=== PATIENT | female | born 1935 | race Two or more races ===

== ENCOUNTER 2017-01-19 10:31 | Inpatient (IN) | payer OTHER ==
[~2017-01-19] VITALS: Ht 167.6 cm; Wt 68.5 kg
--- NOTE | 2017-01-19 10:41 | NUR ---
BIBRA FROM HOME DUE TO ALTERED MENTAL STATUS. PATIENT IS AWAKE, HOWEVER CONFUSED. APPEARS IN NO APPARENT DISTRESS, RESPIRATION EVEN AND UNLABORED. SKIN IS WARM TO TOUCH AND NON DIAPHORETIC. PATIENT IS AFEBRILE. VSS. GOWNED PT AND PLACED ON TELE MONITOR, IV NOTED ON LHAND20.
[2017-01-19] MEDS ORDERED: IV NS 0.9% 1,000 ML ONE ×2 (10:56→13:01)
[2017-01-19] MEDS ORDERED: IV NS 0.9% 1,000 ML BAG IV ONE ×2 (11:00→13:00)
--- NOTE | 2017-01-19 11:16 | NUR ---
MORRO COLLINS AT BS
--- NOTE | 2017-01-19 11:16 | NUR ---
URINE SAMPLE SENT
--- NOTE | 2017-01-19 11:28 | NUR ---
CALLED NURSING SUP. FOR BED, SAID SHE WILL CALL ME BACK
[2017-01-19 11:29] LABS: APPEARANCE,URINE Cloudy (CLEAR); BILIRUBIN,URINE Negative (NEGATIVE); BLOOD, URINE Moderate Ery/uL (NEGATIVE); COLOR,URINE Yellow (YELLOW); KETONES,URINE Trace (NEGATIVE); LEUKOCYTE ESTERASE ,URINE Negative (NEGATIVE); NITRITE, URINE Negative (NEGATIVE); PH,URINE 8.5 (5.0-8.0); PROTEIN,URINE 30 mg/dl (NEGATIVE); UGLUCOSE Negative (NEGATIVE); UROBILINOGEN,URINE 0.2 EU/dL (0.2)
[2017-01-19 11:30] LABS: BASOPHILS # (AUTO) 0.2 /CMM (0.0-0.2); BASOPHILS % (AUTO) 1.3 % (0.0-2.0); EOSINOPHILS % (AUTO) 0.1 % (0.0-6.0); HEMATOCRIT 37 % (33-45); HEMOGLOBIN 12.3 g/dL (11.5-14.8); LYMPHOCYTES % (AUTO) 6.6 % (20.0-44.0); MEAN CORPUSCULAR HEMOGLOBIN 30 PG (26.0-33.0); MEAN CORPUSCULAR HGB CONC 33 g/dl (31.0-36.0); MEAN CORPUSCULAR VOLUME 92 fL (82-100); MONOCYTES # (AUTO) 0.8 /CMM (0.1-1.30); MONOCYTES % (AUTO) 5.1 % (2.0-12.0); NEUTROPHILS # (AUTO) 13.7 /CMM (1.8-8.9); NEUTROPHILS % (AUTO) 86.9 % (43.0-81.0); PLATELET COUNT (AUTO) 169 /CMM (150-450); RDW COEFFICIENT OF VARIATION 13.1 (11.5-15.0); RED BLOOD CELL COUNT(AUTO) 4.07 MIL/uL (4.0-5.2); WHITE BLOOD COUNT (AUTO) 15.7 K/uL (4.3-11.0)
[2017-01-19 11:38] LABS: CALCIUM, SERUM 8.2 mg/dL (8.5-10.1); CARBON DIOXIDE 28 mmol/L (21-32); CHLORIDE 103 mmol/L (98-107); GLUCOSE 146 mg/dL (74-106); POTASSIUM 4.1 mmol/L (3.5-5.1); SODIUM SERUM 138 mmol/L (136-145); UREA NITROGEN, BLOOD 15 mg/dL (7-18)
[2017-01-19 11:41] LABS: INR 1.08 (0.87-1.13); PROTHROMBIN TIME 11.2 SECS (9.5-12.7)
[2017-01-19 11:43] LABS: ALANINE AMINOTRANSFERASE 8 U/L (12-78); ALBUMIN 2.8 g/dL (3.4-5.0); ALCOHOL, BLOOD < 3 mg/dL (0-0); ALKALINE PHOSPHATASE 68 U/L (46-116); ASPARTATE AMINOTRANSFERASE 21 U/L (15-37); BILIRUBIN,DIRECT 0.1 mg/dL (0.0-0.2); TOTAL PROTEIN, SERUM 6.3 g/dL (6.4-8.2)
[2017-01-19 11:43] LABS: BACTERIA,URINE None seen /HPF (None Seen); SQUAMOUS EPITHELIAL CELL,UR Few /HPF (None Seen); URINE AMORPHOUS PHOSPHATES Moderate /HPF (None Seen); WBC,URINE 0-3 /HPF (0-3)
[2017-01-19 11:46] LABS: TROPONIN I < 0.017 ng/mL (0.00-0.056)
[2017-01-19] MEDS ORDERED: LUTE1CAP5 PO (12:07)
[2017-01-19] MEDS ORDERED: GLUC1TAB9 PO (12:07)
[2017-01-19] MEDS ORDERED: OXYB10TA PO (12:07)
[2017-01-19] MEDS ORDERED: OMEG-158 PO (12:07)
[2017-01-19] MEDS ORDERED: CALC-34 PO (12:07)
[2017-01-19] MEDS ORDERED: SERT25TA PO (12:07)
[2017-01-19] MEDS ORDERED: ASPI81TA2 PO (12:07)
[2017-01-19] MEDS ORDERED: VITA1TAB56 PO (12:07)
[2017-01-19] MEDS ORDERED: ASCO500T9 PO (12:07)
[2017-01-19] MEDS ORDERED: ACET-2605 PO (12:07)
[2017-01-19] MEDS ORDERED: UBID100C13 PO (12:07)
[2017-01-19] MEDS ORDERED: CARV3.122 PO (12:07)
[2017-01-19] MEDS ORDERED: CHOL100044 PO (12:07)
--- NOTE | 2017-01-19 12:18 | NUR ---
PT IS BACK FROM [place]
--- NOTE | 2017-01-19 12:47 | NUR ---
DR.RUTHERFORD MEHDI HOUSEKEEPER/CUSTODIAN/LAUNDRY WORKER
[2017-01-19] MEDS ORDERED: CEFTRIAXONE 1GM BAG (ER ONLY) 1 GM/50 ML PIGGYBACK IV ONE (13:00)
[2017-01-19] MEDS ORDERED: CEFTRIAXONE 1GM BAG (ER ONLY) 50 ML IV ONE (13:01)
--- NOTE | 2017-01-19 13:15 | NUR ---
PT TRANSPORTED TO 3W WITH VSS Addendum: 01/19/17 at 1315 by ROBERTO PT TRASNPORTED TO TELE 1 WITH VSS
[2017-01-19] MEDS ORDERED: SECONDARY IV SET 1 EA INFUS.SET MC ONE ×2 (13:22→20:32)
[2017-01-19] MEDS ORDERED: IV SET PRIMARY PUMP SET 1 EA INFUS.SET MC ONE (13:22)
[2017-01-19 13:30] VITALS: BP 126/54
[2017-01-19] MEDS ORDERED: Z GUARD REMEDY 2 OZ OINT TP PRN (13:30)
[2017-01-19] MEDS ORDERED: ONDANSETRON HCL/PF 4 MG/2 ML VIAL IVP PRN (13:30)
[2017-01-19] MEDS ORDERED: ACETAMINOPHEN 325 MG TABLET PO PRN (13:30)
[2017-01-19] MEDS ORDERED: HYDROCODONE/APAP 5/325MG 1 EACH TABLET PO PRN (13:30)
[2017-01-19] MEDS ORDERED: ZOLPIDEM TARTRATE 5 MG TABLET PO PRN (13:30)
[2017-01-19] MEDS ORDERED: MAG HYDROX/AL HYDROX/SIMETH 30 ML UDC PO PRN (13:30)
--- NOTE | 2017-01-19 13:30 | NUR ---
ADMITTING NOTE RECEIVED PATIENT VIA GURNEY FROM ER NURSE MIKEL. BREATHING EVEN AND UNLABORED ON ROOM AIR 95% SAT. A+OX1 AT BASELINE. OPENS EYES, FOLLOWS STIMULUS, DOES NOT FOLLOW COMMAND, MUMBLES SOUNDS, NON-VERBAL. FAMILY AT BED SIDE SAYING SHE IS NOT IN PAIN THEY ARE FAMILIAR WITH PATIENT. L HAND IV AND RAC IV ARE PATENT, NO COMPLICATIONS. RECEIVING IV FLUIDS AT THIS TIME S/P 1 DOSE ATBX. TELE WRIST BAND ON, MONITOR ON. DAUGHTER RUSSELL IS DPOA, STATING PREFERRING DNR. NEEDS ASSESSED, COMFORT MEASURES PROVIDED. WILL CONTINUE TO MONITOR.
[2017-01-19 16:00] VITALS: BP 111/61
--- NOTE | 2017-01-19 16:17 | NUR ---
ADDITIONAL ADMISSION INFORMATION- PATIENT CAME WITH ONLY 1 BRACELET, NO OTHER BELONGINGS SKIN ENTIRELY INTACT WITH ONLY FAINT BRUISING ON BL CHINS AND BLANCHABLE SACRAL REDNESS ADVANCE DIRECTIVE AND ORGAN DONOR PAPER WORK PLACED IN CHART UNDER ADVANCE DIRECTIVES. PER DAUGHTER, PATIENT'S WISHES ARE DNR AND DNI AND IN CASE OF PATIENT WISHES TO HAVE ORGAN DONATION TO [facility].
[2017-01-19] MEDS: CALCIUM CARB 600MG /VIT D 1 EACH TABLET PO SCH (16:48)
[2017-01-19] MEDS: CHOLECALCIFEROL 1,000 UNIT TABLET (VIT D3) PO SCH (16:48)
[2017-01-19] MEDS: CARVEDILOL 3.125 MG TABLET PO SCH (16:49)
--- NOTE | 2017-01-19 18:54 | NUR ---
RN NOTE PATIENT WAS SEEN BY DR. RODRIGUEZ WITH NEW ORDER FOR GARCIA CATHETER INSERTION R/T RETENTION REPORT BY PATIENT'S DAUGHTER. F/C WAS INSERTED AND PATIENT TOLERATED PROCEDURE, URINE RETURN YELLOW AND CLEAR- USED STERILE TECHNIQUE. PER DAUGHTER REQUEST, SOFT WRIST RESTRAINT ON R ARM TO PREVENT PULLING OF LINES (PT HAS HX OF PULLING). 1 NEW ORDER FOR R ARM SOFT RESTRAINT AND SCD ON LE RECEIVED.
--- NOTE | 2017-01-19 19:06 | NUR ---
PER REGINE CANO TO HOLD HOME MEDS COENZYME Q10, FISH OIL AND GLUCOSAMINE DURING THIS HOSPITAL STAY. PHARMACY UNABLE TO SUPPLY
--- NOTE | 2017-01-19 19:37 | NUR ---
End of shift breathing and loc stable. all needs met. call light in reach.
[2017-01-19 20:00] VITALS: BP 88/39
[2017-01-19] MEDS ORDERED: VANCOMYCIN 1 GM in IV D5W 250 ML IV ONE (20:00)
[2017-01-19] MEDS ORDERED: LEVOFLOXACIN 500 MG /D5W 100ML 500 MG in PREMIX 1 EA IV ONE (20:00)
[2017-01-19] MEDS ORDERED: VANCOMYCIN 0.75 GM in IV D5W 250 ML IV SCH (20:00)
--- NOTE | 2017-01-19 20:00 | NUR ---
VANCO 1GM GIVEN ON RAC AND LEVAQUIN LH BOTH DUE AT SAME TIME NO S/E NOTED AFEBRILE, NO DISTRESS.
--- NOTE | 2017-01-19 20:02 | NUR ---
TEL RN NOTES RECEIVED PT ASLEEP IN BED HOB ELEVATED, A/OX1, ON RA NO SIGN OF SOB,OR FACIAL GRIMACING NOTED CLEAN AND DRY, WILL CONT TO MONITOR PT.
[2017-01-19] MEDS: ENOXAPARIN SODIUM 40 MG/0.4 ML DISP.SYRIN SQ SCH (20:48)
--- NOTE | 2017-01-19 21:03 | NUR ---
PA DAUGHTER WANTS THE COREG TO BE HELD, BECAUSE PT BP ALWALYS RANGES LOW SO PLEASE AWARE.
--- NOTE | 2017-01-19 21:11 | NUR ---
DAUGHTER AKHIL WANTS TO HOLD DITROPAN DUE TO PT WITH F/C AT THIS TIME
[2017-01-19] MEDS: OXYBUTYNIN CHLORIDE 5 MG TABLET PO SCH (21:37)
[2017-01-20] VITALS: BP 108/51
[2017-01-20 04:00] VITALS: BP 97/45
[2017-01-20] MEDS: PANTOPRAZOLE 40 MG TABLET.DR PO SCH ×2 (06:41→08:58)
[2017-01-20 07:03] LABS: BASOPHILS % (AUTO) 0.1 % (0.0-2.0); EOSINOPHILS # (AUTO) 0.1 /CMM (0.0-0.7); EOSINOPHILS % (AUTO) 0.3 % (0.0-6.0); HEMATOCRIT 32 % (33-45); HEMOGLOBIN 10.8 g/dL (11.5-14.8); LYMPHOCYTES # (AUTO) 1.6 /CMM (0.8-4.8); LYMPHOCYTES % (AUTO) 10.2 % (20.0-44.0); MEAN CORPUSCULAR HEMOGLOBIN 31 PG (26.0-33.0); MEAN CORPUSCULAR HGB CONC 34 g/dl (31.0-36.0); MEAN CORPUSCULAR VOLUME 92 fL (82-100); MONOCYTES # (AUTO) 0.8 /CMM (0.1-1.30); NEUTROPHILS % (AUTO) 84.4 % (43.0-81.0); PLATELET COUNT (AUTO) 143 /CMM (150-450); RDW COEFFICIENT OF VARIATION 13.5 (11.5-15.0); RED BLOOD CELL COUNT(AUTO) 3.46 MIL/uL (4.0-5.2); WHITE BLOOD COUNT (AUTO) 15.5 K/uL (4.3-11.0)
[2017-01-20] MEDS: IV NS 0.9% 1,000 ML IV PRN (07:09)
--- NOTE | 2017-01-20 07:11 | NUR ---
CLOSING NOTES PT AWAKE WITH SR NO DISTRESS, NO C/O OF PAIN AM CARE PROVIDED WELL REPOSITIONED ENDORSED FOR AM NURSE TO CHECK BEFORE ADMIN OF COREG PER DAUGHTER REQUEST.
[2017-01-20 07:20] LABS: CALCIUM, SERUM 7.6 mg/dL (8.5-10.1); CARBON DIOXIDE 26 mmol/L (21-32); CHLORIDE 109 mmol/L (98-107); CREATININE 0.8 mg/dL (0.6-1.3); GLUCOSE 98 mg/dL (74-106); MAGNESIUM 2.1 mg/dL (1.8-2.4); PHOSPHORUS 1.6 mg/dL (2.5-4.9); POTASSIUM 3.8 mmol/L (3.5-5.1); SODIUM SERUM 142 mmol/L (136-145); UREA NITROGEN, BLOOD 12 mg/dL (7-18)
--- NOTE | 2017-01-20 07:30 | NUR ---
TEL RN NOTES RECEIVED PT ASLEEP IN BED HOB ELEVATED, A/OX1, ON RA NO SIGN OF SOB,OR FACIAL GRIMACING NOTED CLEAN AND DRY,SAFETY MEASURES IN PLACE.I.V SITE CDI AND PATENT.. WILL CONT TO MONITOR PT.FOR CHANGES
[2017-01-20 07:39] LABS: CHOLESTEROL 150 mg/dL (<200); HDL CHOLESTEROL 51 mg/dL (40-60); LDL 76 mg/dL (0-99); TRIGLYCERIDES 79 mg/dL (30-150)
[2017-01-20 08:00] VITALS: BP 99/58
[2017-01-20] MEDS: MULTIVITAMINS W-MINERALS 1 TAB TABLET PO SCH (08:55)
[2017-01-20] MEDS: ASCORBIC ACID 500 MG TABLET PO SCH (08:55)
[2017-01-20] MEDS: SERTRALINE HCL 25 MG TABLET PO SCH (08:55)
[2017-01-20] MEDS: VIT B CMPLX 3/FA/VIT C/BIOTIN 1 TAB TABLET PO SCH (08:55)
[2017-01-20] MEDS: ASPIRIN 81 MG TAB.CHEW PO SCH (08:56)
[2017-01-20] MEDS: CHOLECALCIFEROL 1,000 UNIT TABLET (VIT D3) PO SCH ×3 (08:56→17:16)
[2017-01-20] MEDS: CALCIUM CARB 600MG /VIT D 1 EACH TABLET PO SCH ×2 (08:56→17:16)
[2017-01-20] MEDS: CARVEDILOL 3.125 MG TABLET PO SCH ×2 (08:58→17:17)
[2017-01-20] MEDS ORDERED: DHA PO SCH (09:00)
[2017-01-20] MEDS ORDERED: OMEGA PO SCH (09:00)
[2017-01-20] MEDS ORDERED: FISH OIL E PO SCH (09:00)
[2017-01-20] MEDS ORDERED: Medication Not On Formulary EA (Ubidecarenone (Coq-10) 300 MG) PO SCH (09:00)
[2017-01-20] MEDS ORDERED: [UNRECOGNIZED DRUG - OTHER] PO SCH (09:00)
[2017-01-20] MEDS ORDERED: [UNRECOGNIZED DRUG - OTHER] PO SCH (09:00)
[2017-01-20] MEDS ORDERED: EPA PO SCH (09:00)
[2017-01-20] MEDS ORDERED: GLUCOSAMINE HCL PO SCH (09:00)
[2017-01-20] MEDS ORDERED: MSM PO SCH (09:00)
[2017-01-20 12:00] VITALS: BP_SYST 90; BP_SYST 99; BP_DIAS 55
[2017-01-20] MEDS ORDERED: SECONDARY IV SET 1 EA INFUS.SET MC ONE (12:46)
[2017-01-20] MEDS: CEFTRIAXONE 1 G in IV D5W 50 ML IV SCH (12:51)
[2017-01-20] MEDS ORDERED: K PHOS NEUTRAL 250 MG TABLET PO ONE (14:00)
[2017-01-20 16:00] VITALS: BP 101/53
[2017-01-20 20:00] VITALS: BP 119/36
[2017-01-20] MEDS: LEVOFLOXACIN 250 MG /D5W 50 ML 250 MG in PREMIX 1 EA IV SCH (20:41)
[2017-01-20] MEDS: ENOXAPARIN SODIUM 40 MG/0.4 ML DISP.SYRIN SQ SCH (21:04)
--- NOTE | 2017-01-20 21:06 | NUR ---
RECEIVED PT AWAKE ON RA NO SOB OR C/O OF PAIN PULLED IV LINE OUT NEW LINE PLACED ON RW 22 G, NO COMPLICATION DAUGHTER NISHI REQUEST TO CONT TO HOLD DITROPAN D/T PT CONT ON F/C.
[2017-01-20] MEDS: OXYBUTYNIN CHLORIDE 5 MG TABLET PO SCH (22:00)
[2017-01-21] VITALS: BP 134/88
[2017-01-21] MEDS: IV NS 0.9% 1,000 ML IV PRN ×2 (03:05→19:29)
[2017-01-21 04:00] VITALS: BP 107/56
--- NOTE | 2017-01-21 06:49 | NUR ---
TELE CLOSING NOTES PT AWAKE WITH SR HR 66 WITH PVC, ON RM AIR ,NO SOB OR C/O OF PAIN, ALL NEEDS ATTENDED WELL REPOSITIONED, DAUGHTER STILL REFUSED TO GIVE DITROPAN D/T PT CONT ON F/C.
[2017-01-21 07:30] LABS: CALCIUM, SERUM 7.6 mg/dL (8.5-10.1); CARBON DIOXIDE 24 mmol/L (21-32); CHLORIDE 108 mmol/L (98-107); CREATININE 0.7 mg/dL (0.6-1.3); GLUCOSE 98 mg/dL (74-106); PHOSPHORUS 1.9 mg/dL (2.5-4.9); POTASSIUM 3.3 mmol/L (3.5-5.1); SODIUM SERUM 141 mmol/L (136-145); UREA NITROGEN, BLOOD 11 mg/dL (7-18)
[2017-01-21 08:00] VITALS: BP 112/53
[2017-01-21] MEDS: ASPIRIN 81 MG TAB.CHEW PO SCH (08:20)
[2017-01-21] MEDS: CARVEDILOL 3.125 MG TABLET PO SCH ×2 (08:20→16:06)
[2017-01-21] MEDS: CALCIUM CARB 600MG /VIT D 1 EACH TABLET PO SCH ×2 (08:20→16:05)
[2017-01-21] MEDS: CHOLECALCIFEROL 1,000 UNIT TABLET (VIT D3) PO SCH ×3 (08:20→16:05)
[2017-01-21] MEDS: SERTRALINE HCL 25 MG TABLET PO SCH (08:20)
[2017-01-21] MEDS: MULTIVITAMINS W-MINERALS 1 TAB TABLET PO SCH (08:20)
[2017-01-21] MEDS: ASCORBIC ACID 500 MG TABLET PO SCH (08:20)
[2017-01-21] MEDS: VIT B CMPLX 3/FA/VIT C/BIOTIN 1 TAB TABLET PO SCH (08:20)
[2017-01-21] MEDS ORDERED: POTASSIUM CHLORIDE 20 MEQ TAB.PRT.SR PO ONE (11:00)
[2017-01-21 12:00] VITALS: BP 104/48
[2017-01-21] MEDS: CEFTRIAXONE 1 G in IV D5W 50 ML IV SCH (12:57)
[2017-01-21] MEDS ORDERED: K PHOS NEUTRAL 250 MG TABLET PO ONE (15:30)
[2017-01-21 16:00] VITALS: BP 109/56
[2017-01-21] MEDS: LACTOBACILLUS RHAMNOSUS GG 1 EACH CAP.SPRINK PO SCH (16:05)
--- NOTE | 2017-01-21 19:54 | NUR ---
RECEIVED PT AWAKE IN BED WITH SR 65-76, CONT ON RM AIR, WELL TOLERATED, HOB ELEVATED, CLEAN AND DRY, SEEN BY MD WARD WITH ORDER TO D/C F/C IN AM, DAUGHTER AT BED SIDE MADE AWARE, ALL NEEDS ATTENDED AT THIS TIME.
--- NOTE | 2017-01-21 19:57 | NUR ---
END OF SHIFT NO NOTABLE CHANGE OF CONDITION OR COMPLICATIONS THIS SHIFT.
[2017-01-21 20:00] VITALS: BP 112/52
[2017-01-21] MEDS: LEVOFLOXACIN 250 MG /D5W 50 ML 250 MG in PREMIX 1 EA IV SCH (20:37)
[2017-01-21] MEDS: ENOXAPARIN SODIUM 40 MG/0.4 ML DISP.SYRIN SQ SCH (20:40)
[2017-01-21] MEDS: OXYBUTYNIN CHLORIDE 5 MG TABLET PO SCH (22:00)
--- NOTE | 2017-01-21 22:30 | NUR ---
DITROPAN NOT GIVEN PER DAUGHTERS REQUEST
[2017-01-21] MEDS: MAGNESIUM HYDROXIDE 30 ML UDC PO PRN (22:34)
[2017-01-22 04:00] VITALS: BP 112/71
--- NOTE | 2017-01-22 06:18 | NUR ---
MS RN CLOSING NOTES PT AWAKE IN BED AM CARE PROVIDED, ON RM AIR CLEAN AND DRY WELL REPOSITIONED, NO SIGN OF SOB, F/C D/C ORDERED, WILL MONITOR PT FOR RETENTION.
[2017-01-22] MEDS: PANTOPRAZOLE 40 MG TABLET.DR PO SCH ×2 (06:42→08:57)
--- NOTE | 2017-01-22 07:20 | NUR ---
RN NOTES PATIENT RECEIVED IN BED, ORIENTED TO SELF ONLY, ABLE TO MAKE NEEDS KNOWN.PT ON BILATERAL SOFT WRIST RESTRAINTS, NURSING EDUCATION REINFORCED. IN NO APPARENT PAIN OR DISCOMFORT, KEPT CLEAN DRY AND COMFORTABLE, CALL LIGHT WITHIN EASY REACH, WILL CONTINUE TO MONITOR
[2017-01-22 07:35] LABS: CALCIUM, SERUM 7.8 mg/dL (8.5-10.1); CARBON DIOXIDE 23 mmol/L (21-32); CHLORIDE 106 mmol/L (98-107); CREATININE 0.6 mg/dL (0.6-1.3); GLUCOSE 97 mg/dL (74-106); MAGNESIUM 2.1 mg/dL (1.8-2.4); PHOSPHORUS 2.4 mg/dL (2.5-4.9); POTASSIUM 3.8 mmol/L (3.5-5.1); SODIUM SERUM 139 mmol/L (136-145); UREA NITROGEN, BLOOD 10 mg/dL (7-18)
[2017-01-22 08:00] VITALS: BP 121/67
[2017-01-22 08:13] LABS: BASOPHILS % (AUTO) 0.3 % (0.0-2.0); EOSINOPHILS # (AUTO) 0.2 /CMM (0.0-0.7); EOSINOPHILS % (AUTO) 1.6 % (0.0-6.0); HEMATOCRIT 34 % (33-45); HEMOGLOBIN 11.5 g/dL (11.5-14.8); LYMPHOCYTES % (AUTO) 21.4 % (20.0-44.0); MEAN CORPUSCULAR HEMOGLOBIN 31 PG (26.0-33.0); MEAN CORPUSCULAR HGB CONC 34 g/dl (31.0-36.0); MEAN CORPUSCULAR VOLUME 91 fL (82-100); MONOCYTES # (AUTO) 0.8 /CMM (0.1-1.30); MONOCYTES % (AUTO) 8.3 % (2.0-12.0); NEUTROPHILS # (AUTO) 6.4 /CMM (1.8-8.9); NEUTROPHILS % (AUTO) 68.4 % (43.0-81.0); PLATELET COUNT (AUTO) 167 /CMM (150-450); RDW COEFFICIENT OF VARIATION 12.3 (11.5-15.0); RED BLOOD CELL COUNT(AUTO) 3.67 MIL/uL (4.0-5.2); WHITE BLOOD COUNT (AUTO) 9.4 K/uL (4.3-11.0)
[2017-01-22] MEDS: MULTIVITAMINS W-MINERALS 1 TAB TABLET PO SCH (08:56)
[2017-01-22] MEDS: ASCORBIC ACID 500 MG TABLET PO SCH (08:56)
[2017-01-22] MEDS: CARVEDILOL 3.125 MG TABLET PO SCH ×2 (08:57→16:51)
[2017-01-22] MEDS: LACTOBACILLUS RHAMNOSUS GG 1 EACH CAP.SPRINK PO SCH ×2 (08:57→16:51)
[2017-01-22] MEDS: CHOLECALCIFEROL 1,000 UNIT TABLET (VIT D3) PO SCH ×3 (08:57→16:51)
[2017-01-22] MEDS: CALCIUM CARB 600MG /VIT D 1 EACH TABLET PO SCH ×2 (08:57→16:50)
[2017-01-22] MEDS: ASPIRIN 81 MG TAB.CHEW PO SCH (08:57)
[2017-01-22] MEDS: VIT B CMPLX 3/FA/VIT C/BIOTIN 1 TAB TABLET PO SCH (08:57)
[2017-01-22] MEDS: SERTRALINE HCL 25 MG TABLET PO SCH (08:57)
[2017-01-22] MEDS ORDERED: LEVO500T15 PO (09:44)
[2017-01-22 12:00] VITALS: BP 114/64
[2017-01-22] MEDS ORDERED: K PHOS NEUTRAL 250 MG TABLET PO ONE (12:00)
[2017-01-22] MEDS: CEFTRIAXONE 1 G in IV D5W 50 ML IV SCH (12:13)
[2017-01-22] MEDS: IV NS 0.9% 1,000 ML IV PRN (12:28)
--- NOTE | 2017-01-22 14:16 | NUR ---
MS1/RN OK REHAB DISCHARGE SPOKE TO PT'S DAUGHTER, EXPLAINED THE DIFFERENCE BETWEEN REGULAR SNF AND REHAB SNF. PT'S AGREE TO D/C PT IN A REHAB FACILITY. SHE WANTS A PLACE AROUND THE AREA AND WANTS TO VISIT FIRST. CASE MANAGEMENT MADE AWARE WELL THE PRIMARY NURSE.
--- NOTE | 2017-01-22 18:55 | NUR ---
RN NOTES PATIENT IN BED, ORIENTED TO SELF ONLY, ABLE TO MAKE NEEDS KNOWN.PT ON BILATERAL SOFT WRIST RESTRAINTS, NURSING EDUCATION REINFORCED. IN NO APPARENT PAIN OR DISCOMFORT,ALL NEEDS ATTENDED, KEPT CLEAN DRY AND COMFORTABLE, CALL LIGHT WITHIN EASY REACH, WILL CONTINUE TO MONITOR AND ENDORSE TO NEXT SHIFT FOR CONTINUITY OF CARE, DAUGHTER AT BEDSIDE
--- NOTE | 2017-01-22 19:30 | NUR ---
RN INITIAL NOTES RECEIVED PATIENT IN BED, AWAKE, ALERT AND ORIENTED X1 TO SELF. PATIENT IS CONFUSED, VERBALIZES NONSENSICAL THINGS, ABLE TO BE REDIRECTED TO GIVE SHORT ANSWERS. BREATHING EVEN AND NONLABORED, TOLERATING ROOM AIR WELL, FREE FROM ANY S/S OF RESPIRATORY DISTRESS. IV SITE PATENT AND INTACT, ONGOING IVF PRESCRIBED, IV SITE FREE FROM ANY S/S OF INFILTRATION OR PHLEBITIS. PATIENT'S DAUGHTER AT BEDSIDE, PLAN OF CARE DISCUSSED IN DETAIL. CALL LIGHT LEFT WITHIN EASY REACH, BED IN LOWEST AND LOCKED POSITION. WILL CONTINUE TO CLOSELY MONITOR
[2017-01-22 20:00] VITALS: BP 109/56
[2017-01-22] MEDS ORDERED: SECONDARY IV SET 1 EA INFUS.SET MC ONE (20:47)
[2017-01-22] MEDS: MAGNESIUM HYDROXIDE 30 ML UDC PO PRN (20:57)
[2017-01-22] MEDS: LEVOFLOXACIN 250 MG /D5W 50 ML 250 MG in PREMIX 1 EA IV SCH (20:57)
[2017-01-22] MEDS: OXYBUTYNIN CHLORIDE 5 MG TABLET PO SCH (21:00)
[2017-01-22] MEDS: ENOXAPARIN SODIUM 40 MG/0.4 ML DISP.SYRIN SQ SCH (21:15)
[2017-01-23 04:00] VITALS: BP 119/57
[2017-01-23] MEDS ORDERED: IV SET PRIMARY PUMP SET 1 EA INFUS.SET MC ONE (04:49)
[2017-01-23] MEDS: IV NS 0.9% 1,000 ML IV PRN (04:58)
--- NOTE | 2017-01-23 07:16 | NUR ---
RN CLOSING NOTES PATIENT ENDORSED TO NURSE DAVIS FOR CONTINUITY OF CARE. PATIENT RESTING COMFORTABLY IN BED, ASLEEP AT THIS TIME
--- NOTE | 2017-01-23 07:32 | NUR ---
DIMENSIONAL INTEGRATION ENGINEER RECEIVED PATIENT FROM THE PREVIOUS SHIFT. PATIENT IS IN BED. RESTING COMFORTABLY. NO ACUTE DISTRESS NOTED. EVEN AND NON LABORED BREATHING PATTERN. RESTRAINTS ARE NO FOR SAFETY. TURNED AND REPOSITIONED FOR COMFORT AND WOUND PREVENTION. WILL CONTINUE TO MONITOR AND PROVIDE CARE.
[2017-01-23 08:00] VITALS: BP 123/52
[2017-01-23] MEDS: MULTIVITAMINS W-MINERALS 1 TAB TABLET PO SCH (08:53)
[2017-01-23] MEDS: SERTRALINE HCL 25 MG TABLET PO SCH (08:53)
[2017-01-23] MEDS: PANTOPRAZOLE 40 MG TABLET.DR PO SCH (08:54)
[2017-01-23] MEDS: LACTOBACILLUS RHAMNOSUS GG 1 EACH CAP.SPRINK PO SCH ×2 (08:54→17:13)
[2017-01-23] MEDS: CHOLECALCIFEROL 1,000 UNIT TABLET (VIT D3) PO SCH ×3 (08:54→17:12)
[2017-01-23] MEDS: CALCIUM CARB 600MG /VIT D 1 EACH TABLET PO SCH ×2 (08:54→17:12)
[2017-01-23] MEDS: VIT B CMPLX 3/FA/VIT C/BIOTIN 1 TAB TABLET PO SCH (08:54)
[2017-01-23] MEDS: ASCORBIC ACID 500 MG TABLET PO SCH (08:54)
[2017-01-23] MEDS: ASPIRIN 81 MG TAB.CHEW PO SCH (08:54)
[2017-01-23] MEDS: CARVEDILOL 3.125 MG TABLET PO SCH ×2 (08:55→17:13)
[2017-01-23 12:00] VITALS: BP 101/45
[2017-01-23] MEDS ORDERED: NA PHOS,M-B/NA PHOS,DI-BA 1 EA ENEMA RC STA (12:19)
[2017-01-23] MEDS: CEFTRIAXONE 1 G in IV D5W 50 ML IV SCH (12:46)
[2017-01-23 16:00] VITALS: BP 104/49
[2017-01-23 20:00] VITALS: BP 107/61
[2017-01-23] MEDS: OXYBUTYNIN CHLORIDE 5 MG TABLET PO SCH (21:09)
[2017-01-23] MEDS: LEVOFLOXACIN 250 MG /D5W 50 ML 250 MG in PREMIX 1 EA IV SCH (21:09)
[2017-01-23] MEDS: ENOXAPARIN SODIUM 40 MG/0.4 ML DISP.SYRIN SQ SCH (21:13)
[2017-01-24 04:00] VITALS: BP 120/56
[2017-01-24] MEDS: IV NS 0.9% 1,000 ML IV PRN (06:37)
--- NOTE | 2017-01-24 06:55 | NUR ---
RN CLOSING NOTES PATIENT LAYING COMFORTABLY IN BED, DENIES ANY PAIN OR DISCOMFORT. WILL ENDORSE THE PATIENT TO THE AM SHIFT NURSE FOR ASHWIN
--- NOTE | 2017-01-24 07:38 | NUR ---
OPTICAL COATING TECHNICIAN INITIAL NOTES RECEIVED PATIENT IN BED, AWAKE, ALERT AND ORIENTED TO SELF. PT BREATHING EVEN AND NONLABORED, TOLERATING ROOM AIR WELL, FREE FROM ANY S/S OF RESPIRATORY DISTRESS. IV SITE PATENT AND INTACT, ONGOING IVF PRESCRIBED, IV SITE FREE FROM ANY S/S OF INFILTRATION OR PHLEBITIS. CALL LIGHT LEFT WITHIN EASY REACH, BED IN LOWEST AND LOCKED POSITION. WILL CONTINUE TO CLOSELY MONITOR THROUGHOUT THE DAY
[2017-01-24 08:00] VITALS: BP 101/67
[2017-01-24] MEDS: PANTOPRAZOLE 40 MG TABLET.DR PO SCH (08:57)
[2017-01-24] MEDS: SERTRALINE HCL 25 MG TABLET PO SCH (08:57)
[2017-01-24] MEDS: CARVEDILOL 3.125 MG TABLET PO SCH ×2 (08:57→17:22)
[2017-01-24] MEDS: LACTOBACILLUS RHAMNOSUS GG 1 EACH CAP.SPRINK PO SCH ×2 (08:57→17:19)
[2017-01-24] MEDS: ASPIRIN 81 MG TAB.CHEW PO SCH (08:58)
[2017-01-24] MEDS: MULTIVITAMINS W-MINERALS 1 TAB TABLET PO SCH (08:58)
[2017-01-24] MEDS: CALCIUM CARB 600MG /VIT D 1 EACH TABLET PO SCH ×2 (08:58→17:20)
[2017-01-24] MEDS: VIT B CMPLX 3/FA/VIT C/BIOTIN 1 TAB TABLET PO SCH (08:58)
[2017-01-24] MEDS: CHOLECALCIFEROL 1,000 UNIT TABLET (VIT D3) PO SCH ×3 (08:58→17:19)
[2017-01-24] MEDS: ASCORBIC ACID 500 MG TABLET PO SCH (09:05)
[2017-01-24 12:00] VITALS: BP 123/44
[2017-01-24] MEDS: CEFTRIAXONE 1 G in IV D5W 50 ML IV SCH (13:13)
[2017-01-24 16:00] VITALS: BP 107/51
[2017-01-24] MEDS: LEVOFLOXACIN (250MG) 250 MG TABLET PO SCH (17:18)
--- NOTE | 2017-01-24 17:40 | NUR ---
MANAGER CRITICAL CARE NOTE RN CONTACTED RESEARCH LEADER AMARILIS IN REGARDS TO THE PATIENT VIDAL CONCERNS ABOUT THE MOTHER DISCHARGE PLAN, NURSING STAFF AWAITING RETURN CALL AND OR UPDATE
--- NOTE | 2017-01-24 18:22 | NUR ---
DIRECTOR OF ARCHITECTURE CLOSING NOTES RECEIVED PATIENT IN BED, AWAKE, ALERT AND ORIENTED TO SELF. PT BREATHING EVEN AND NONLABORED, TOLERATING ROOM AIR WELL, FREE FROM ANY S/S OF RESPIRATORY DISTRESS. IV SITE PATENT AND INTACT, ONGOING IVF PRESCRIBED, IV SITE FREE FROM ANY S/S OF INFILTRATION OR PHLEBITIS. CALL LIGHT LEFT WITHIN EASY REACH, BED IN LOWEST AND LOCKED POSITION. POC POSSIBLE AM DISCHARGE TO SNF , DAUGHTER AWAITING RETURN CALL FOR AMARILIS CASE MANAGEMENT WILL ENDORSE TO PM NURSE. DAUGHTER AT BEDSIDE,
[2017-01-24 20:00] VITALS: BP 103/65
--- NOTE | 2017-01-24 20:10 | NUR ---
RN MS INITIAL NOTES PT IS IN BED, A/O X1, ON NC 2LPM, SATURATING WELL, NO RESPIRATORY DISTRESS NOTED, STILL ON SOFT BILATERAL RESTRAINTS, CHECKED FOR SKIN BREAKDOWN AND CIRCULATION. ASSISTED PT WITH TURNING AND REPOSITIONING, BED IN LOWEST AND LOCKED POSITION. WILL CONTINUE TO MONITOR, CALL LIGHTS WITHIN REACH.
--- NOTE | 2017-01-24 20:30 | NUR ---
RN MS NOTE PT IV WAS PULLED OUT, ATTEMPTED TO INSERT ANOTHER IV LINE AND WAS UNSUCCESSFUL, INFORMED CHARGED.
[2017-01-24] MEDS: ENOXAPARIN SODIUM 40 MG/0.4 ML DISP.SYRIN SQ SCH (20:59)
[2017-01-24] MEDS: OXYBUTYNIN CHLORIDE 5 MG TABLET PO SCH (21:00)
[2017-01-25] MEDS ORDERED: SET PCA INFUSE SET 1 EA INFUS.SET MC ONE (03:00)
[2017-01-25] MEDS ORDERED: IV SET PRIMARY PUMP SET 1 EA INFUS.SET MC ONE (03:01)
[2017-01-25 04:00] VITALS: BP 116/51
--- NOTE | 2017-01-25 04:30 | NUR ---
RN M/S NOTE IV INSERTION ATTEMPT BY THE CHARGE NURSE UNSUCCESSFUL, CALLED DR. CHERY FOR RECOMMENDATION. RECEIVED AN ORDER FOR MIDLINE INSERTION. ORDER CARRIED OUT AND INFORMED NURSING AUDOGRAPH OPERATOR.
--- NOTE | 2017-01-25 06:49 | NUR ---
RN M/S CLOSING NOTES NO SIGNIFICANT CHANGES OVERNIGHT, ON RA, SATURATING @ 98%. DENIES OF PAIN. ASSISTED WITH ADLS, PT STILL ON BILATERAL SOFT RESTRAINTS, FREQUENTLY CHECKED FOR SKIN BREAKDOWN AND CIRCULATION, TURNED AND REPOSITIONED Q2 AND PRN,KEPT PT CLEAN AND DRY. CALL LIGHTS IN WITHIN, REACH, ALL MEDS GIVEN. BED LOCKED AND IN LOWEST POSITION. WILL ENDORSE MORNING NURSE FOR CONTINUITY OF CARE.
[2017-01-25 08:00] VITALS: BP 123/69
[2017-01-25] MEDS: ASCORBIC ACID 500 MG TABLET PO SCH (08:52)
[2017-01-25] MEDS: PANTOPRAZOLE 40 MG TABLET.DR PO SCH (08:52)
[2017-01-25] MEDS: MULTIVITAMINS W-MINERALS 1 TAB TABLET PO SCH (08:52)
[2017-01-25] MEDS: IV NS 0.9% 1,000 ML IV PRN (08:52)
[2017-01-25] MEDS: CHOLECALCIFEROL 1,000 UNIT TABLET (VIT D3) PO SCH ×3 (08:52→17:24)
[2017-01-25] MEDS: ASPIRIN 81 MG TAB.CHEW PO SCH (08:52)
[2017-01-25] MEDS: VIT B CMPLX 3/FA/VIT C/BIOTIN 1 TAB TABLET PO SCH (08:52)
[2017-01-25] MEDS: CALCIUM CARB 600MG /VIT D 1 EACH TABLET PO SCH ×2 (08:52→17:24)
[2017-01-25] MEDS: LACTOBACILLUS RHAMNOSUS GG 1 EACH CAP.SPRINK PO SCH ×2 (08:53→17:24)
[2017-01-25] MEDS: SERTRALINE HCL 25 MG TABLET PO SCH (08:53)
[2017-01-25] MEDS: CARVEDILOL 3.125 MG TABLET PO SCH ×2 (08:53→17:25)
[2017-01-25] MEDS: CEFTRIAXONE 1 G in IV D5W 50 ML IV SCH (12:49)
[2017-01-25 16:00] VITALS: BP 120/62
[2017-01-25] MEDS: LEVOFLOXACIN (250MG) 250 MG TABLET PO SCH (17:25)
[2017-01-25 20:00] VITALS: BP 104/44
[2017-01-25] MEDS: ENOXAPARIN SODIUM 40 MG/0.4 ML DISP.SYRIN SQ SCH (21:10)
[2017-01-25] MEDS: OXYBUTYNIN CHLORIDE 5 MG TABLET PO SCH (22:35)
[2017-01-26 04:00] VITALS: BP 111/49
--- NOTE | 2017-01-26 06:41 | NUR ---
MS RN NOTES AWAKE & RESPONSIVE. STILL CONFUSED. NOT IN ANY DISTRESS. NO SOB NOTED. DENIES ANY PAIN OR DISCOMFORT AT THIS TIME. WITH IVF INFUSING WELL. AM CARE DONE. MONITORED ACCORDINGLY. CALL LIGHT WITHIN REACH. BED IN LOWEST POSITION. SR UP X 3 WITH BED ALARM ON FOR SAFETY. WILL ENDORSE TO NEXT SHIFT.
[2017-01-26] MEDS: IV NS 0.9% 1,000 ML IV PRN (06:59)
[2017-01-26 08:00] VITALS: BP 109/51
[2017-01-26] MEDS: VIT B CMPLX 3/FA/VIT C/BIOTIN 1 TAB TABLET PO SCH (09:20)
[2017-01-26] MEDS: LACTOBACILLUS RHAMNOSUS GG 1 EACH CAP.SPRINK PO SCH (09:20)
[2017-01-26] MEDS: SERTRALINE HCL 25 MG TABLET PO SCH (09:20)
[2017-01-26] MEDS: MULTIVITAMINS W-MINERALS 1 TAB TABLET PO SCH (09:20)
[2017-01-26] MEDS: CHOLECALCIFEROL 1,000 UNIT TABLET (VIT D3) PO SCH ×2 (09:20→13:32)
[2017-01-26] MEDS: PANTOPRAZOLE 40 MG TABLET.DR PO SCH (09:20)
[2017-01-26] MEDS: ASCORBIC ACID 500 MG TABLET PO SCH (09:21)
[2017-01-26] MEDS: ASPIRIN 81 MG TAB.CHEW PO SCH (09:21)
[2017-01-26] MEDS: CARVEDILOL 3.125 MG TABLET PO SCH (09:21)
[2017-01-26] MEDS: CALCIUM CARB 600MG /VIT D 1 EACH TABLET PO SCH (09:21)
[2017-01-26 16:00] VITALS: BP 116/49
--- NOTE | 2017-01-26 17:00 | NUR ---
RN NOTE PT DISCHARGED TO [facility], IN STABLE CONDITION, CONFUSED, VIA AMBULANCE, SKIN INTACT, BELONGINGS GIVEN TO PT, EXIT CARE DONE, DISCHARGE INSTRUCTIONS PROVIDED TO AMBULANCE, MIDLINE REMOVED, ID BAND REMOVED, REPORT GIVEN TO BRIAN MARTINEZ.
== END 2017-01-26 17:12 | DRG 871 ==
LOC: ER 10:32 → TELE1 12:45 → MEDSG1 01-21 11:19
PROVIDERS: ADMIT Internal Medicine; ATTEND Internal Medicine
PROC: 05H533Z Insertion of Infusion Device into Right Subclavian Vein, Percutaneous Approach (ICD-10-PCS; principal; 2017-01-25)
DX: A41.9 Sepsis, unspecified organism (principal); G92 Toxic encephalopathy; E43 Unspecified severe protein-calorie malnutrition; J15.9 Unspecified bacterial pneumonia; N39.0 Urinary tract infection, site not specified; G30.9 Alzheimer's disease, unspecified; F02.80 Dementia in other diseases classified elsewhere, unspecified severity, without behavioral disturbance, psychotic disturbance, mood disturbance, and anxiety; I10 Essential (primary) hypertension; M81.0 Age-related osteoporosis without current pathological fracture; Z66 Do not resuscitate; Z87.440 Personal history of urinary (tract) infections; Z96.643 Presence of artificial hip joint, bilateral; F32.9 Major depressive disorder, single episode, unspecified; E88.09 Other disorders of plasma-protein metabolism, not elsewhere classified; M62.50 Muscle wasting and atrophy, not elsewhere classified, unspecified site; Z79.899 Other long term (current) drug therapy; Z68.24 Body mass index [BMI] 24.0-24.9, adult; R65.20 Severe sepsis without septic shock
CPT/HCPCS: 36415; 70450-TC; 71010-TC; 73502; 80048-TC; 80061-TC; 80076-TC; 81000-TC; 83605-TC; 83735-TC; 84100-TC; 84484-TC; 85025-TC; 85730-TC; 87040-TC; 87081-TC; 87086-TC; 92521; 97001-TC; 97003-TC; 97110-TC; 97116-TC; 97530-TC; A4216; A4606; G0480; J0696; J1650; J1956; J3370; J7030; J7060; Z7610

== ENCOUNTER 2018-08-21 08:58 | Inpatient (IN) | payer MEDICARE, OTHER ==
[~2018-08-21] VITALS: Ht 165.1 cm; Wt 54.4 kg
[~2018-08-21 08:58] MED LIST: ACET-2605 PO; ASCO500T9 PO; ASPI-1169 PO; CALC-34 PO; CARV3.122 PO; CHOL100044 PO; GLUC1TAB9 PO; LEVO500T2 PO; LUTE1CAP5 PO; OMEG-158 PO; OXYB10TA PO; SERT25TA PO; UBID100C13 PO; VITA1TAB56 PO
[2018-08-21] MEDS ORDERED: IV NS 0.9% 1,000 ML BAG IV ONE ×2 (09:00→10:30)
--- NOTE | 2018-08-21 09:10 | NUR ---
PT BIBRA ALTERED MENTAL STATUS MORE THAN USUAL SINCE MIDNIGHT FROM [facility] DNR, PT IS AAOX0, V/S STABLE, NOT IN RESPIRATORY DISTRESS KEPT RESTED AND COMFORTABLE, WILL CONTINUE TO MONITOR.
--- NOTE | 2018-08-21 09:38 | NUR ---
PT LABS DRAWNED AND SENT TO LAB. AWAITING RESULTS.
[2018-08-21 09:45] LABS: BASOPHILS % (AUTO) 0.1 % (0.0-2.0); EOSINOPHILS % (AUTO) 0.1 % (0.0-6.0); HEMATOCRIT 35 % (33-45); HEMOGLOBIN 11.3 g/dL (11.5-14.8); LYMPHOCYTES # (AUTO) 0.5 /CMM (0.8-4.8); LYMPHOCYTES % (AUTO) 2.4 % (20.0-44.0); MEAN CORPUSCULAR HGB CONC 32 g/dl (31.0-36.0); MEAN CORPUSCULAR VOLUME 93 fL (82-100); MONOCYTES # (AUTO) 0.5 /CMM (0.1-1.30); MONOCYTES % (AUTO) 2.5 % (2.0-12.0); NEUTROPHILS # (AUTO) 19.1 /CMM (1.8-8.9); NEUTROPHILS % (AUTO) 94.9 % (43.0-81.0); PLATELET COUNT (AUTO) 111 /CMM (150-450); RED BLOOD CELL COUNT(AUTO) 3.78 MIL/uL (4.0-5.2); WHITE BLOOD COUNT (AUTO) 20.1 K/uL (4.3-11.0)
--- NOTE | 2018-08-21 09:45 | NUR ---
PT IS WHEELED TO CT SCAN VIA [facility].
[2018-08-21 10:00] LABS: CALCIUM, SERUM 8.1 mg/dL (8.5-10.1); CARBON DIOXIDE 22 mmol/L (21-32); CHLORIDE 107 mmol/L (98-107); CREATININE 2.6 mg/dL (0.6-1.3); GLUCOSE 125 mg/dL (74-106); POTASSIUM 3.3 mmol/L (3.5-5.1); SODIUM SERUM 142 mmol/L (136-145); UREA NITROGEN, BLOOD 39 mg/dL (7-18)
[2018-08-21 10:06] LABS: ALANINE AMINOTRANSFERASE 285 U/L (12-78); ALKALINE PHOSPHATASE 193 U/L (46-116); ASPARTATE AMINOTRANSFERASE 389 U/L (15-37); BILIRUBIN,DIRECT 0.6 mg/dL (0.0-0.2); BILIRUBIN,TOTAL 1.2 mg/dL (0.2-1.0); TOTAL PROTEIN, SERUM 5.4 g/dL (6.4-8.2)
[2018-08-21] MEDS ORDERED: BENZOIN COMPOUND TINCT 60 ML BOTTLE ONE (10:14)
[2018-08-21 10:17] LABS: THYROID STIMULATING HORMONE 3.705 uIU/mL (0.358-3.74)
[2018-08-21] MEDS ORDERED: CEFEPIME 1 GM in IV D5W 50 ML IV ONE (10:30)
[2018-08-21] MEDS ORDERED: ASPIRIN 300 MG/SUPP.RECT RC ONE ×2 (10:30→11:53)
[2018-08-21] MEDS ORDERED: VANCOMYCIN 1 GM in IV D5W 250 ML IV ONE (10:30)
--- NOTE | 2018-08-21 10:52 | NUR ---
GOT [facility] BED 312-2
[2018-08-21] MEDS ORDERED: NA P133E RC (10:55)
[2018-08-21] MEDS ORDERED: ACET-73 PO (10:55)
[2018-08-21] MEDS ORDERED: BISA10SU61 RC (10:55)
[2018-08-21] MEDS ORDERED: MULT1TAB73 PO (10:55)
[2018-08-21] MEDS ORDERED: DEXT15DR6 EACHEYE (10:55)
[2018-08-21] MEDS ORDERED: SACC250C PO (10:55)
[2018-08-21] MEDS ORDERED: CRAN3875 PO (10:55)
[2018-08-21] MEDS ORDERED: PANT40TA4 PO (10:55)
[2018-08-21] MEDS ORDERED: ACET325T53 PO (10:55)
[2018-08-21] MEDS ORDERED: DOCU-141 PO (10:55)
[2018-08-21] MEDS ORDERED: CALC-261 PO (10:55)
[2018-08-21] MEDS ORDERED: HYDR-4384 PO (10:55)
[2018-08-21] MEDS ORDERED: MAGN400O6 PO (10:55)
--- NOTE | 2018-08-21 11:08 | NUR ---
[phone]
[2018-08-21] MEDS ORDERED: Z GUARD REMEDY 2 OZ OINT TP PRN (11:30)
[2018-08-21] MEDS ORDERED: ACETAMINOPHEN 325 MG TABLET PO PRN (11:30)
[2018-08-21] MEDS ORDERED: HYDROCODONE/APAP 5/325MG 1 EACH TABLET PO PRN (11:30)
[2018-08-21] MEDS ORDERED: MAGNESIUM HYDROXIDE 30 ML UDC PO PRN (11:30)
[2018-08-21] MEDS ORDERED: ONDANSETRON HCL/PF 4 MG/2 ML VIAL IVP PRN (11:30)
[2018-08-21] MEDS ORDERED: MAG HYDROX/AL HYDROX/SIMETH 30 ML UDC PO PRN (11:30)
--- NOTE | 2018-08-21 12:06 | NUR ---
URINE COLLECTED AND SENT TO LAB.
[2018-08-21 12:08] LABS: APPEARANCE,URINE Cloudy (CLEAR); BILIRUBIN,URINE SMALL (NEGATIVE); BLOOD, URINE Large Ery/uL (NEGATIVE); COLOR,URINE Yellow (YELLOW); KETONES,URINE Trace (NEGATIVE); LEUKOCYTE ESTERASE ,URINE Moderate (NEGATIVE); NITRITE, URINE Negative (NEGATIVE); PH,URINE 8.5 (5.0-8.0); PROTEIN,URINE >=300 mg/dl (NEGATIVE); UGLUCOSE Negative (NEGATIVE); UROBILINOGEN,URINE 0.2 EU/dL (0.2)
[2018-08-21 12:15] LABS: BACTERIA,URINE Many /HPF (None Seen); RBC,URINE 21-50 /HPF (0-2); SQUAMOUS EPITHELIAL CELL,UR Few /HPF (None Seen); WBC,URINE TOO NUMEROUS TO COUN /HPF (0-3)
--- NOTE | 2018-08-21 12:45 | NUR ---
114-2 TELE Addendum: 08/21/18 at 1246 by EMPASCUAL 114-2 MADHU
--- NOTE | 2018-08-21 13:11 | NUR ---
RECEIVED REPORT FROM ER RADHA RN PATIENT WILL GO T ROOM 114-2
--- NOTE | 2018-08-21 13:14 | NUR ---
REPORT GIVEN TO BRIAN DALTON FOR ASHWIN, AVNCOMYCIN INFUSING TO FLOOR.
--- NOTE | 2018-08-21 13:30 | NUR ---
RECEIVED PATIENT VIA GURNEY FROM ER. LETHARGIC ABLE TO AROUSE WITH TOUCH . ON 2 LTRS NASAL CANNULA NO SIGNS OR SYMPTOMS OF RESPIRATORY DISTRESS OR ACUTE PAIN. IVF RUNNING OPEN TO (L) HAND #20 GAUGE. PHOTS TAKEN WOUND CONSULT ORDERED. VITAL SIGNS FOLLOWS TEMP 97.5 HR 87 RR 20 BP 125/57 O2 97 % ON 2 LTRS. PT UNABLE TO PROVIDE HISTORY DAUGHTER AND DPOA AT BEDSIDE TO PROVIDE INFORMATION. SAFETY PRECAUTIONS IN PLACE BED IN LOW POSITION CALL LIGHT WITHIN REACH
[2018-08-21 16:00] VITALS: BP 115/79
--- NOTE | 2018-08-21 16:00 | NUR ---
CALLED [employer] AND WAS DISCONNECTED ANNITA TRY AGAIN TO REACH DR PETER
--- NOTE | 2018-08-21 16:23 | NUR ---
CRITICAL LAB VALUE TROPIN 1.460 TRENDING DOWN
[2018-08-21 16:35] VITALS: BP 115/74
--- NOTE | 2018-08-21 17:15 | NUR ---
LEFT MESSAGE WITH ANSWERING SERVICE FOR DR PEREIRA IN REGARDS TO MED RECON AND CRITICAL TROPIN LEVEL 1.460 TRENDING DOWN
--- NOTE | 2018-08-21 17:20 | NUR ---
SPOKE WITH DR KENT IN REGARDS TO MED RECON AND TROPIN LEVEL
--- NOTE | 2018-08-21 19:08 | NUR ---
RN MADHU NOTES PATIENT ASLEEP IN BED AWAKES INTERMITTENTLY. NO SIGNS OR SYMPTOMS OF RESPIRATORY DISTRESS ON 2 LTRS NASAL CANNULA. OR ACUTE PAIN. IV SALINE LOCK TO (R) HAND 20 GAUGE. TUENED Q2HR KEPT CLEAN AND DRY. NO ORDERS SINCE ADMISSION SPOKE WITH DR KENT EARLIER. SAFETY PRECAUTIONS IN PLACE BED IN LOW POSITION CALL LIGHT WITHIN REACH. DAUGHTER AT BEDSIDE. ASHWIN GIVEN TO NOC SHIFT
[2018-08-21 20:00] VITALS: BP 121/92
--- NOTE | 2018-08-21 20:08 | NUR ---
rn note. received the pt rest on the bed, awake, alert. follow commands. lethargic. cardiac rehabilitation specialist showing nsr. iv lt hand 20g. saline lock. hob elevated. oxygen 2l via nasal cannula. sat 98%. no macute distress noted. will continue to monitor vitals.
[2018-08-21] MEDS ORDERED: VANCOMYCIN 1 GM in IV NS 0.9% 250 ML IV SCH (20:30)
[2018-08-21] MEDS ORDERED: IV NS 0.9% 1,000 ML IV PRN (21:00)
[2018-08-21] MEDS ORDERED: POTASSIUM CHLORIDE 20 MEQ TAB.PRT.SR PO ONE (21:00)
[2018-08-21 21:18] VITALS: BP 115/65
[2018-08-21] MEDS: IV NS 0.9% 1,000 ML IV PRN (22:27)
[2018-08-22] VITALS: BP 120/65
--- NOTE | 2018-08-22 03:17 | NUR ---
RN NOTE. AM CARE, ORAL CARE, BED BATH GIVEN. ,LINEN CHANGED. REMAINING SAME OXYGEN TOLERATED WELL. SAT 98%. NO ACUTE DISTRESS NOTED. CUSTOMS BROKER SHOWING NSR. IV RT HAND 20G. IVF NS 100ML/H. HOB ELEVATED. TURN AND REPOSITION Q2H. FC PATENT. WILL CONTINUE TO MONITOR VITALS.
[2018-08-22] MEDS: IV NS 0.9% 1,000 ML IV PRN ×2 (04:23→18:13)
[2018-08-22 04:24] VITALS: BP 140/85
--- NOTE | 2018-08-22 07:10 | NUR ---
MADHU RN OPENING NOTES RECEIVED PT LYING ON BED.AWAKE AND ALERT BY CALLING NAME AND TOUCH.ON TELE HR IS 90'S WITH SR NOW.ON 2 L O2 VIA NC CONTINUOUSLY,TOLERATING WELL.NO SOB AND ACUTE DISTRESS NOTED.FC IS IN PLACE WITH SHERRI COLOR URINE.IV LINE IS ON RIGHT HAND G20,IV FLUID IS INFUSING.SITE IS CLEAN,DRY AND INTACT,NO INFILTRATION NOTED.SAFETY IS MAINTAINED AT ALL TIMES.BED IS IN LOW POSITION AND LOCKED.CALL LIGHT IS WITHIN REACH.WILL CONTINUE TO MONITOR THE PT CLOSELY AND CHECKING VITAL SIGNS Q4HRS AND PRN.
[2018-08-22] MEDS ORDERED: FEE PK DOSING 1 MIN EA MC ONE (07:20)
[2018-08-22 07:58] LABS: CHOLESTEROL 88 mg/dL (<200); HDL CHOLESTEROL 16 mg/dL (40-60); LDL 29 mg/dL (0-99); TRIGLYCERIDES 184 mg/dL (30-150)
[2018-08-22 07:59] LABS: BASOPHILS % (AUTO) 0.1 % (0.0-2.0); EOSINOPHILS % (AUTO) 4.5 % (0.0-6.0); HEMATOCRIT 29 % (33-45); HEMOGLOBIN 9.3 g/dL (11.5-14.8); LYMPHOCYTES # (AUTO) 1.1 /CMM (0.8-4.8); LYMPHOCYTES % (AUTO) 4.1 % (20.0-44.0); MEAN CORPUSCULAR HGB CONC 33 g/dl (31.0-36.0); MEAN CORPUSCULAR VOLUME 92 fL (82-100); MONOCYTES # (AUTO) 0.7 /CMM (0.1-1.30); MONOCYTES % (AUTO) 2.7 % (2.0-12.0); NEUTROPHILS # (AUTO) 23.6 /CMM (1.8-8.9); NEUTROPHILS % (AUTO) 88.6 % (43.0-81.0); PLATELET COUNT (AUTO) 114 /CMM (150-450); RED BLOOD CELL COUNT(AUTO) 3.13 MIL/uL (4.0-5.2); WHITE BLOOD COUNT (AUTO) 26.6 K/uL (4.3-11.0)
[2018-08-22 08:00] VITALS: BP 81/54
[2018-08-22 08:02] LABS: CALCIUM, SERUM 7.3 mg/dL (8.5-10.1); CARBON DIOXIDE 23 mmol/L (21-32); CHLORIDE 111 mmol/L (98-107); CREATININE 2.9 mg/dL (0.6-1.3); GLUCOSE 84 mg/dL (74-106); MAGNESIUM 2.4 mg/dL (1.8-2.4); PHOSPHORUS 4.1 mg/dL (2.5-4.9); POTASSIUM 4.9 mmol/L (3.5-5.1); SODIUM SERUM 144 mmol/L (136-145); UREA NITROGEN, BLOOD 53 mg/dL (7-18)
[2018-08-22] MEDS ORDERED: CARVEDILOL 3.125 MG TABLET PO SCH (09:00)
[2018-08-22 12:00] VITALS: BP_SYST 79; BP_SYST 80; BP_DIAS 41; BP_DIAS 49
[2018-08-22] MEDS ORDERED: CEFEPIME 1 GM in IV D5W 50 ML IV SCH (12:00)
--- NOTE | 2018-08-22 14:30 | NUR ---
MADHU RN NOTES LAB REPORTED TROPONIN LEVEL IS 0.609,REPORTED TO ,LEFT THE MESSAGE.WAITING FOR THE CALL BACK.
[2018-08-22 16:00] VITALS: BP 79/41
--- NOTE | 2018-08-22 17:00 | NUR ---
MADHU RN NOTES FAMILY IS AT BEDSIDE.THEY ARE REQUESTING TO TALK WITH ABOUT THE ADVANCE DIRECTIVE.PAGED X2,WAITING FOR THE CALL BACK.
--- NOTE | 2018-08-22 18:55 | NUR ---
MADHU RN NOTES PT IS ON BED.CLEAN AND DRY.VITAL SIGNS ARE CHECKING Q4HRS.URINE IS COLLECTED AND SENT TO LAB.NO SOB AND ACUTE DISTRESS NOTED ON 2 L O2 VIA NC.IV FLUIDS IS STILL RUNNING.IV SITE IS CLEAN AND NO INFILTRATION NOTED.FAMILY IS AT BEDSIDE.ENDORSED TO JAPANESE TUTOR RN TO CALL NIGHT VINE FRUIT FARMING SUPERVISOR THE FAMILY WANTS TO DC ATB AND WE TRIED TO CALL AND [facility] IN THE MORNING SHE HAVEN'T CALL BACK YET AND ASHWIN. Addendum: 08/22/18 at 1903 by JOHN HANSON RN HAVEN'T CALL BACK ABOUT TROPONIN LEVEL.
--- NOTE | 2018-08-22 19:10 | NUR ---
TD/RN INITIAL NOTES RECEIVED PT IN BED, ALERT, VERBALLY RESPONSIVE. PA UMANA AT BED SIDE. SR HR 80S ON TELEMONITOR. F/C INTACT AND IN PLACED. WITH ONGOING IVF NS AT 100 ML/HR, INFUSING WELL ON RHAND G20 IV. HOB ELEVATED. SAFETY MEASURES IN PLACED. CALL LIGHT WITHIN EASY REACH. PA UMANA(DPOA) AT BEDSIDE, REQUESTING TO SPEAK WITH MD TO DISCUSS DISCONTINUING TREATMENTS (IV ANTIBIOTICS AND IV LINE) TO PT. CALLED [facility]. AWAITING TO CALL BACK. WILL CONT TO MONITOR
[2018-08-22 20:00] VITALS: BP 86/38
[2018-08-22 20:26] LABS: APPEARANCE,URINE CLEAR (CLEAR); BILIRUBIN,URINE NEGATIVE (NEGATIVE); BLOOD, URINE NEGATIVE Ery/uL (NEGATIVE); COLOR,URINE YELLOW (YELLOW); KETONES,URINE NEGATIVE (NEGATIVE); LEUKOCYTE ESTERASE ,URINE NEGATIVE (NEGATIVE); NITRITE, URINE NEGATIVE (NEGATIVE); PROTEIN,URINE NEGATIVE (NEGATIVE); UGLUCOSE NEGATIVE (NEGATIVE); UROBILINOGEN,URINE 0.2 EU/dL (0.2)
[2018-08-22] MEDS ORDERED: VANCOMYCIN 0.75 GM in IV D5W 250 ML IV SCH (21:00)
[2018-08-22 21:05] LABS: EOSINOPHIL,URINE None Seen
--- NOTE | 2018-08-22 21:39 | NUR ---
RN NOTES DTR/DORINDA WINN AT BEDSIDE. REFUSED IV VANCO. EXPLAINED RISKS AND BENEFITS.
[2018-08-22 21:49] LABS: CREATININE, URINE < 5.0 MG/DL (30.0-125.0); URINE SODIUM, RANDOM < 5 mmol/l (40-220); URINE TOTAL PROTEIN < 6.0 mg/dL (0-11.9)
--- NOTE | 2018-08-22 22:15 | NUR ---
RN NOTES DURING ROUNDS, SPOKE WITH DAUGHTER PA/DPOA, VERBALIZED HER CONCERN AGAIN RE: WANTED TO SPEAK WITH MD REGARDING CHANGE OF CODE STATUS, PT'S DAUGHTER VERY UPSET, PER PA, "I WAS TRYING TO GET A HOLD WITH MD SINCE 2:30 PM, BUT NO ONE SHOWED UP." CALLED EXCHANGE AGAIN, TO [facility] DR LEO, STILL WAITING FOR CALL BACK CHARGE NURSE EDER MADE AWARE. SPICE BLENDER JEFF MADE AWARE RE: THE INCIDENT, PER SPICE BLENDER, IF DR LEO DOESN'T CALL BACK IN 30 MIN, CALL DR BEARD, TIMBER CUTTER CHARGE NURSE, EDER SPOKE WITH PT'S DTE(PA) MADE AWARE ABOUT THE SITUATION
--- NOTE | 2018-08-22 22:35 | NUR ---
RN NOTES CALLED EXCHANGE AGAIN TO [facility] DR LEO
--- NOTE | 2018-08-22 22:45 | NUR ---
RN NOTES RECEIVED CALL BACK FROM SUPERINTENDENT LAUNDRY, PER OCULAR CARE TECHNICIAN, "WAIT FOR COUPLE MINUTES, DR LEO WILL CALL BACK." DONG WINN MADE AWARE
--- NOTE | 2018-08-22 22:55 | NUR ---
RN NOTES RECEIVED MESSAGE FROM DR LEO, PER MD WILL BE IN THE UNIT AROUND 12. DPOA/DAUGHTER PA MADE AWARE AND OK WITH IT
[2018-08-23] VITALS: BP 91/44
--- NOTE | 2018-08-23 00:19 | NUR ---
RN NOTES SEEN BY DR FELIPA DTR/DORINDA WINN AT BEDSIDE. ALL QUESTIONS AND CONCERNS WERE ANSWERED BY MD. PER MD, MD WILL PUT ORDER
--- NOTE | 2018-08-23 00:30 | NUR ---
RN NOTES CLARIFIED MORPHINE DRIP WITH DR LEO. PER MORPHINE DRIP, START AT 2MG/HR, TITRATE BY 2MG/HR Q1HR UP TO MAX 20MG/HR
[2018-08-23] MEDS ORDERED: MORPHINE SULFATE INJ 4 MG/ML DISP.SYRIN ONE (01:08)
[2018-08-23] MEDS ORDERED: KEY,NONCONTROL,TO KEEP IN PYXI 1 EA MC ONE ×3 (01:12→22:39)
--- NOTE | 2018-08-23 01:30 | NUR ---
RN NOTES MORPHINE DRIP 250MG/250ML NOT AVAILABLE. CREAM CHEESE MAKER MADE AWARE, PER DISPLAY SCREEN FABRICATOR, OK TO MIX 50MG MORPHINE+50MLS NS FOR NOW.
[2018-08-23 04:00] VITALS: BP 85/42
--- NOTE | 2018-08-23 07:04 | NUR ---
RN NOTES PT RESTING COMFORTABLY IN BED. COMFORT MEASURES INITIATED. WITH ONGOING MORPHINE DRIP AT 12MG/HR INFUSING WELL ON RHAND. ALL NEEDS ANTICIPATED. ENDORSED TO AM SHIFT RN FOR ASHWIN
[2018-08-23 07:09] LABS: BASOPHILS % (AUTO) 0.2 % (0.0-2.0); EOSINOPHILS % (AUTO) 0.7 % (0.0-6.0); HEMATOCRIT 30 % (33-45); HEMOGLOBIN 9.8 g/dL (11.5-14.8); LYMPHOCYTES # (AUTO) 1.8 /CMM (0.8-4.8); LYMPHOCYTES % (AUTO) 7.5 % (20.0-44.0); MEAN CORPUSCULAR HGB CONC 33 g/dl (31.0-36.0); MEAN CORPUSCULAR VOLUME 91 fL (82-100); MONOCYTES # (AUTO) 0.6 /CMM (0.1-1.30); MONOCYTES % (AUTO) 2.4 % (2.0-12.0); NEUTROPHILS # (AUTO) 21.5 /CMM (1.8-8.9); NEUTROPHILS % (AUTO) 89.2 % (43.0-81.0); PLATELET COUNT (AUTO) 103 /CMM (150-450); RED BLOOD CELL COUNT(AUTO) 3.29 MIL/uL (4.0-5.2)
--- NOTE | 2018-08-23 07:10 | NUR ---
RN NOTES RECEIVED PT ON BED , NONVERBAL ON 12MG/HR MORPHINE GTT FOR COMFORT MEASURES, ON TELE SR HR IN 70' , PT IS DNR/DNI, SR UP x3, BED LOCKED AND IN LOWEST POSITION , CONTINUE COMFORT CARE PER MD AND FAMILY REQUEST .
[2018-08-23 07:21] LABS: CREATINE KINASE, TOTAL 554 U/L (26-192)
[2018-08-23 07:25] LABS: ALANINE AMINOTRANSFERASE 185 U/L (12-78); ALBUMIN 1.8 g/dL (3.4-5.0); ALKALINE PHOSPHATASE 129 U/L (46-116); ASPARTATE AMINOTRANSFERASE 108 U/L (15-37); BILIRUBIN,TOTAL 0.4 mg/dL (0.2-1.0); CALCIUM, SERUM 8.2 mg/dL (8.5-10.1); CARBON DIOXIDE 24 mmol/L (21-32); CHLORIDE 113 mmol/L (98-107); CREATININE 1.6 mg/dL (0.6-1.3); GLUCOSE 72 mg/dL (74-106); MAGNESIUM 2.6 mg/dL (1.8-2.4); PHOSPHORUS 3.3 mg/dL (2.5-4.9); SODIUM SERUM 144 mmol/L (136-145); TOTAL PROTEIN, SERUM 5.2 g/dL (6.4-8.2); UREA NITROGEN, BLOOD 51 mg/dL (7-18)
[2018-08-23 08:00] VITALS: BP 101/50
--- NOTE | 2018-08-23 11:30 | NUR ---
RN NOTES MORPHINE GTT AT 20MG/HR AT THIS TIME, CONTINUE COMFORT MEASURES PER MD ORDER .
[2018-08-23 12:00] VITALS: BP 94/61
--- NOTE | 2018-08-23 13:38 | NUR ---
RN NOTES PT'S DAUGHTER AT THE BEDSIDE CRYING , EMOTIONAL SUPPORT GIVEN , RESPIRATION DOWN TO 8 AT THIS TIME , CONTINUE COMFORT CARE .
--- NOTE | 2018-08-23 15:58 | NUR ---
RN NOTES FAMILY AT THE BEDSIDE, PT ON MORPHINE GTT AT 20MG/HR , PT HAS AGONAL BREATHING , CONTINUE COMFORT CARE .
[2018-08-23 16:00] VITALS: BP 82/53
--- NOTE | 2018-08-23 18:47 | NUR ---
RN NOTES PT ON COMFORT CARE , DAUGHTER AT THE BEDSIDE, MORPHINE GTT AT 20MG/HR , PT STILL WITH AGONAL BREATHING , WILL ENDORSE TO BUSINESS PROCESS ARCHITECT NURSE FOR CONTINUATION OF COMFORT CARE .
[2018-08-23 20:00] VITALS: BP 87/49
--- NOTE | 2018-08-23 20:51 | NUR ---
RN MS INITIAL NOTES RECEIVED PT ON BED , NONVERBAL ON 20MG/HR MORPHINE GTT FOR COMFORT MEASURES, ON MS HR IN 84' , CONT' ON COMFORT MEASURES, PER FAMILY REQUEST, PT IS DNR/DNI, SR UP x3, BED LOCKED AND IN LOWEST POSITION .
[2018-08-24] VITALS: BP 96/82
--- NOTE | 2018-08-24 06:26 | NUR ---
RN MS CLOSING NOTES ENDORSED PT ON BED , NONVERBAL ON 20MG/HR MORPHINE GTT FOR COMFORT MEASURES, ON MS HR IN 73' , CONT' ON COMFORT MEASURES, PER FAMILY REQUEST, PT IS DNR/DNI, SR UP x3, BED LOCKED AND IN LOWEST POSITION, PT KEPT CLEAN AND DRY, WELL REPOSITIONED Q2H, DAUGHTER AT BED SIDE.
--- NOTE | 2018-08-24 07:00 | NUR ---
RN MS OPENING NOTES RECEIVED PT ON BED , NONVERBAL A/O X0 NO SIGNS OR SYMPTOMS OF RESPIRATORY DISTRESS ON 3 LTRS NO SIGNS OF ACUTE PAIN ON COMFORT MEASURES. ON 20MG/HR MORPHINE GTT FOR COMFORT MEASURES, ON MS HR IN 84' BILATERAL LUNG SOUNDS COARSE AND DIMINISHED REPOSITIONED FOR COMFORT. SAFETY PRECAUTIONS IN PLACE BED IN LOW POSITION PER FAMILY REQUEST, PT IS DNR/DNI,
[2018-08-24 07:41] LABS: CALCIUM, SERUM 8.9 mg/dL (8.5-10.1); CARBON DIOXIDE 22 mmol/L (21-32); CHLORIDE 116 mmol/L (98-107); CREATININE 1.3 mg/dL (0.6-1.3); GLUCOSE 90 mg/dL (74-106); POTASSIUM 4.5 mmol/L (3.5-5.1); SODIUM SERUM 147 mmol/L (136-145); UREA NITROGEN, BLOOD 50 mg/dL (7-18)
[2018-08-24 08:00] VITALS: BP 91/52
[2018-08-24] MEDS ORDERED: KEY,NONCONTROL,TO KEEP IN PYXI 1 EA MC ONE ×2 (11:30→17:44)
[2018-08-24 12:10] LABS: *SPE A/G RATIO 0.7 (0.7-1.7); *SPE ALPHA-1-GLOBULIN 0.4 g/dL (0.0-0.4); *SPE ALPHA-2-GLOBULIN 0.8 g/dL (0.4-1.0); *SPE BETA GLOBULIN 0.9 g/dL (0.7-1.3); *SPE GLOBULIN, TOTAL 2.7 g/dL (2.2-3.9); *SPE M-SPIKE Not Observed g/dL (Not Observed); *SPEGAMMA GLOBULIN 0.6 g/dL (0.4-1.8)
[2018-08-24 13:12] LABS: PTH, INTACT 41 pg/mL (15-65)
[2018-08-24 16:00] VITALS: BP 76/37
[2018-08-24 20:00] VITALS: BP 78/45
--- NOTE | 2018-08-24 20:03 | NUR ---
RN OPENING NOTES RECEIVED REPORT FROM LIDYA TORRES. PATIENT OBTUNDED BUT RESPONSIVE TO SOME TACTILE STIMULI. BREATHING EVEN & UNLABORED, TOLERATING O2 @ 2LPM VIA NC. RADIAL PULSES PRESENT BUT WEAK. RIGHT HAND IV #20 INTACT & PATENT W/ DRESSING CDI & MORPHINE DRIP INFUSING WELL @ 20 ML/HR. GARCIA CATH W/ MINIMAL URINE. NO S/S OF PAIN OR DISCOMFORT @ THIS TIME. SAFETY MEASURES IN PLACE W/ SIDE RAILS UP & BED ALARM ON. DAUGHTER @ BEDSIDE. TURNED & REPOSITIONED FOR COMFORT. WILL CONTINUE TO MONITOR.
[2018-08-25] MEDS ORDERED: KEY,NONCONTROL,TO KEEP IN PYXI 1 EA MC ONE ×3 (00:08→18:31)
[2018-08-25 04:00] VITALS: BP 68/37
--- NOTE | 2018-08-25 07:19 | NUR ---
MS RN OPENING NOTE RECEIVED PATIENT IN BED. SLEEPING, OBTUNDED. ON 4L O2 VIA NC, TOLERATING WELL SATURATING IN 80S. IN NO APPARENT DISTRESS OR DISCOMFORT AT THIS TIME. REPARATIONS EVEN AND UNLABORED. PATIENT IS ON COMFORT MEASURES. MORPHINE DRIP IN PLACE @ 20ML/HR THROUGH RIGHT HAND IVC, 20G. PATENT AND INTACT. PATIENT NOTED WITH GENERALIZED EDEMA. GARCIA CATHETER IN PLACE, DRAINING CLEAR YELLOW URINE. ALL NEEDS ATTENDED, SAFETY MEASURES IN PLACE, BED IN LOW LOCKED POSITION, SIDE RAILS UP X2, WILL CONTINUE TO MONITOR AT THIS TIME.
[2018-08-25 08:00] VITALS: BP 80/37
[2018-08-25 08:22] LABS: CALCIUM, SERUM 8.6 mg/dL (8.5-10.1); CARBON DIOXIDE 23 mmol/L (21-32); CHLORIDE 117 mmol/L (98-107); CREATININE 2.1 mg/dL (0.6-1.3); GLUCOSE 125 mg/dL (74-106); POTASSIUM 4.8 mmol/L (3.5-5.1); SODIUM SERUM 150 mmol/L (136-145); UREA NITROGEN, BLOOD 66 mg/dL (7-18)
--- NOTE | 2018-08-25 13:10 | NUR ---
PATIENT'S MORPHINE DRIP BAD WAS REPLACED WITH FLIGHT CONTROLS ENGINEER SOON. WASTED 20ML OF MEDICATION PER PROTOCOL WITNESSED BY SOON RN. NEW BAG WAS HUNG WITH ORDERED SETTINGS. PATIENT IS RECEIVING MORPHINE DRIP @ 20MG/HR. APPEARS COMFORTABLE/ IN NO APPARENT DISTRESS OR DISCOMFORT. RESPIRATIONS EVEN, LABORED @ 20 BREATHS/MIN, SATURATING 91%. WILL CONTINUE TO MONITOR AT THIS TIME.
--- NOTE | 2018-08-25 16:30 | NUR ---
PATIENT'S BP IS 67/35 WITH HR OF 97. SATURATING 92% ON 3L O2. PATIENT IS ON COMFORT MEASURES WITH CONTINUOUS MORPHINE DRIP @ 20MG/HR. MD AWARE OF PATIENT'S STATUS. WILL CONTINUE TO MONITOR.
--- NOTE | 2018-08-25 18:36 | NUR ---
RECEIVED REPLACEMENT BAG FOR MORPHINE DRIP FROM PHARMACY. MEDICATION WAS PLACED IN THE LOCK BOX IN THE MEDROOM AT THIS TIME.
--- NOTE | 2018-08-25 19:35 | NUR ---
MS RN CLOSING NOTE PATIENT IN BED. SLEEPING, OBTUNDED. ON 3L O2 VIA NC, TOLERATING WELL SATURATING AT 91%. IN NO APPARENT DISTRESS OR DISCOMFORT AT THIS TIME. REPARATIONS EVEN AND UNLABORED. PATIENT IS ON COMFORT MEASURES. MORPHINE DRIP IN PLACE @ 20ML/HR THROUGH RIGHT HAND IVC, 20G. PATENT AND INTACT. PATIENT NOTED WITH GENERALIZED EDEMA. GARCIA CATHETER IN PLACE, DRAINING MINIMAL CLOUDY URINE. ALL NEEDS ATTENDED, KEPT CLEAN AND COMFORTABLE. SAFETY MEASURES IN PLACE, BED IN LOW LOCKED POSITION, SIDE RAILS UP X2, CALL LIGHT WITHIN EASY REACH. WILL ENDORSE TO PM NURSE FOR ASHWIN.
[2018-08-25 20:00] VITALS: BP 74/39
--- NOTE | 2018-08-25 20:06 | NUR ---
RN OPENING NOTES RECEIVED REPORT FROM WOO TORRES. PATIENT OBTUNDED BUT RESPONSIVE TO SOME TACTILE STIMULI. BREATHING EVEN & UNLABORED, TOLERATING O2 @ 3-4LPM VIA NC. RADIAL PULSES PRESENT BUT WEAK. RIGHT HAND IV #20 INTACT & PATENT W/ DRESSING CDI & MORPHINE DRIP INFUSING WELL @ 20 ML/HR. GARCIA CATH W/ MINIMAL URINE. NO S/S OF PAIN OR DISCOMFORT @ THIS TIME. SAFETY MEASURES IN PLACE W/ SIDE RAILS UP & BED ALARM ON. DAUGHTER @ BEDSIDE. TURNED & REPOSITIONED FOR COMFORT. WILL CONTINUE TO MONITOR.
[2018-08-26] MEDS ORDERED: KEY,NONCONTROL,TO KEEP IN PYXI 1 EA MC ONE ×3 (01:25→16:40)
[2018-08-26 04:00] VITALS: BP 79/39
--- NOTE | 2018-08-26 07:30 | NUR ---
RN MS NOTES PT IN BED, EYES CLOSED, NON RESPONSIVE TO VERBAL AND PAINFUL STIMULI, RESPIRATIONS SLOW AND REGULAR, ON CONTINUOUS O2 VIA NASAL CANULA AT 4LPM, ON MORPHINE SULFATE DRIP AT 20MG/HR, IV SITE AT RIGHT HAND INTACT AND PATENT, NO S/S OF INFILTRATION NOTED, F/C IN PLACE, DRAINING MINIMALLY WITH CLEAR YELLOW URINE, KEPT CLEAN, DRY AND COMFORTABLE.
[2018-08-26 08:04] LABS: CALCIUM, SERUM 8.2 mg/dL (8.5-10.1); CARBON DIOXIDE 25 mmol/L (21-32); CHLORIDE 119 mmol/L (98-107); CREATININE 3.2 mg/dL (0.6-1.3); GLUCOSE 145 mg/dL (74-106); POTASSIUM 5.5 mmol/L (3.5-5.1); SODIUM SERUM 151 mmol/L (136-145)
[2018-08-26 08:08] LABS: UREA NITROGEN, BLOOD 85 mg/dL (7-18)
--- NOTE | 2018-08-26 09:30 | NUR ---
MS nurse ,patient DNR/DNI, with absent respirations pulseless no audible heart tones.pupils fixed and dilated ,pronounced at present time, and nursing steam distribution supervisor was notified
--- NOTE | 2018-08-26 09:40 | NUR ---
RN MS NOTES PT'S DAUGHTER PA NOTIFIED OF HER MOTHER'S PASSING, CALLED [facility].
--- NOTE | 2018-08-26 10:30 | NUR ---
RN MS NOTES DAUGHTER PA CAME, POST MORTEM CARE PROVIDED.
--- NOTE | 2018-08-26 12:42 | NUR ---
RN MS NOTES REPRESENTATIVES FROM [facility] CAME TO PLUG PASTER PT'S BODY, RELEASE PAPERS SIGNED, LEFT WITH PT'S DAUGHTER.
== END 2018-08-26 09:30 | disposition expired | DRG 871 ==
LOC: ER 09:03 → TELE 11:54 → TELE-TD 12:49 → MEDSG1 08-23 15:46
PROVIDERS: ADMIT Internal Medicine; ATTEND Internal Medicine
DX: A41.9 Sepsis, unspecified organism (principal); N17.0 Acute kidney failure with tubular necrosis; J96.01 Acute respiratory failure with hypoxia; I21.A1 Myocardial infarction type 2; J15.6 Pneumonia due to other Gram-negative bacteria; G92 Toxic encephalopathy; E44.0 Moderate protein-calorie malnutrition; E87.2 Acidosis; I13.0 Hypertensive heart and chronic kidney disease with heart failure and stage 1 through stage 4 chronic kidney disease, or unspecified chronic kidney disease; N39.0 Urinary tract infection, site not specified; Z51.5 Encounter for palliative care; D69.6 Thrombocytopenia, unspecified; E78.5 Hyperlipidemia, unspecified; N18.9 Chronic kidney disease, unspecified; E87.6 Hypokalemia; F02.80 Dementia in other diseases classified elsewhere, unspecified severity, without behavioral disturbance, psychotic disturbance, mood disturbance, and anxiety; G30.9 Alzheimer's disease, unspecified; I50.9 Heart failure, unspecified; E87.5 Hyperkalemia; I25.10 Atherosclerotic heart disease of native coronary artery without angina pectoris; K21.9 Gastro-esophageal reflux disease without esophagitis; M81.0 Age-related osteoporosis without current pathological fracture; B96.89 Other specified bacterial agents as the cause of diseases classified elsewhere; Z66 Do not resuscitate; Z82.49 Family history of ischemic heart disease and other diseases of the circulatory system; Z86.718 Personal history of other venous thrombosis and embolism; Z96.643 Presence of artificial hip joint, bilateral; D64.9 Anemia, unspecified
CPT/HCPCS: 36415; 70450-TC; 71045-TC; 80048-TC; 80053-TC; 80061-TC; 80076-TC; 81000-TC; 82550-TC; 82553-TC; 82570-TC; 83605-TC; 83690-TC; 83735-TC; 83970; 84100-TC; 84155; 84155-TC; 84165; 84300-TC; 84443-TC; 84484-TC; 85025-TC; 85730-TC; 87040-TC; 87081-TC; 87086-TC; 87186-TC; 93307-TC; G0378; J0692; J2270; J2274; J3370; J3490; J7030; J7050; J7060